=== PATIENT | male | born 2000 | race Caucasian/White ===

== ENCOUNTER 2023-02-15 06:56 | Outpatient (CLI) | payer BC ==
[~2023-02-15] VITALS: Ht 185.4 cm; Wt 110.5 kg
[2023-02-15] MEDS ORDERED: OMEP40CA6 PO (14:15)
[2023-02-20] MEDS ORDERED: PANT40TA52 PO (14:36)
== END 2023-02-15 14:19 ==
LOC: PREOP 06:56
PROVIDERS: ATTEND Surgery
DX: Z01.818 Encounter for other preprocedural examination (principal)